=== PATIENT | male | born 1950 | race Caucasian/White ===

== ENCOUNTER 2017-06-03 06:42 | Day surgery (SDC) | payer MEDICAID ==
[2017-06-03] VITALS (12 sets, daily range): BP systolic 120–137; BP diastolic 69–80
[~2017-06-03] VITALS: Ht 177.8 cm; Wt 81.6 kg
[2017-06-03] MEDS ORDERED: IBUP-75 PO (07:04)
[2017-06-03] MEDS ORDERED: normal saline 1000ml 1,000 ML IV SCH (07:20)
[2017-06-03 07:25] LABS: BASOPHILS % (AUTO) 0.6 % (0-1); EOSINOPHILS # (AUTO) 0.2 X10'3 (0-0.9); EOSINOPHILS % (AUTO) 2.9 % (0-6); HEMATOCRIT 40.9 % (42.0-52.0); HEMOGLOBIN 14.1 g/dl (14.0-17.9); LYMPHOCYTES # (AUTO) 1.9 X10'3 (1.1-4.8); LYMPHOCYTES % (AUTO) 32.4 % (21-51); MEAN CORPUSCULAR HEMOGLOBIN 31.1 PG (27.0-31.0); MEAN CORPUSCULAR HGB CONC 34.6 % (33.0-36.5); MEAN CORPUSCULAR VOLUME 89.9 FL (78-98); MEAN PLATELET VOLUME 8.2 FL (7.4-10.4); MONOCYTES # (AUTO) 0.4 X10'3 (0-0.9); MONOCYTES % (AUTO) 7.2 % (2-12); NEUTROPHILS # (AUTO) 3.3 X10'3 (1.8-7.7); NEUTROPHILS % (AUTO) 56.9 % (42-75); PLATELET COUNT 263 X10'3 (140-440); RED BLOOD COUNT 4.55 X10'6 (4.70-6.10); RED CELL DISTRIBUTION WIDTH 13.2 % (11.5-14.5); WHITE BLOOD COUNT 5.9 X10'3 (4.5-11.0)
[2017-06-03] MEDS ORDERED: glucagon, human recombinant 1mg kit IV ONE (08:15)
[2017-06-03] MEDS ORDERED: LIDOcaine 1% (10mg/ml) 2ml vial SQ ONE (08:15)
[2017-06-03] MEDS ORDERED: midazolam 2 mg/2 ml injection IV PRN (08:15)
[2017-06-03] MEDS ORDERED: clindamycin 600mg/D5W 50ml 50 ML IV ONE ×2 (08:15→08:18)
[2017-06-03] MEDS ORDERED: fentaNYL/PF 50MCG/1 ML 2ML syringe IV PRN (08:15)
[2017-06-03] MEDS ORDERED: midazolam 2 mg/2 ml injection ONE (08:28)
[2017-06-03] MEDS ORDERED: glucagon, human recombinant 1mg kit ONE (08:28)
[2017-06-03] MEDS ORDERED: fentaNYL/PF 50MCG/1 ML 2ML syringe ONE (08:28)
[2017-06-03] MEDS ORDERED: LIDOcaine 1%/PF (10mg/ml) 5ml vial ONE ×2 (08:29→09:51)
[2017-06-03] MEDS ORDERED: heparin sodium, porcine/PF 100unit/ml 5ML syringe ONE (08:36)
[2017-06-03] MEDS ORDERED: iohexol 300 MG/1 ML 50ml polymer ONE (09:50)
[2017-06-03] MEDS ORDERED: ondansetron/PF 4mg/2ml inj ONE (09:52)
[2017-06-03] MEDS ORDERED: ondansetron/PF 4mg/2ml inj IV ONE (09:55)
== END 2017-06-03 13:15 | disposition home or self-care (01) ==
LOC: SSTAY O 06:42
PROVIDERS: ATTEND Radiology Diagnostic Radiology
DX: C11.8 Malignant neoplasm of overlapping sites of nasopharynx (principal); F17.210 Nicotine dependence, cigarettes, uncomplicated; Z79.1 Long term (current) use of non-steroidal anti-inflammatories (NSAID); Z88.0 Allergy status to penicillin; Z88.6 Allergy status to analgesic agent; Z88.1 Allergy status to other antibiotic agents; Z79.01 Long term (current) use of anticoagulants; Z90.89 Acquired absence of other organs
CPT/HCPCS: 36415; 36561; 49440; 76937; 77001; 85025; 99152; 99153; A6219; C1788; C1894; J1610; J1642; J2001; J2250; J2405; J3010; J3490; J7030; Q9967; A4620